=== PATIENT | female | born 1955 | race Caucasian/White ===

== ENCOUNTER → 2016-07-21 | Outpatient (CLI) | payer OTHER | LOC: BMCIMAGING 09:10 | PROVIDERS: ATTEND Internal Medicine | DX: Z12.31 Encounter for screening mammogram for malignant neoplasm of breast (principal) | CPT/HCPCS: G0202 ==

== ENCOUNTER → 2016-12-13 | Outpatient (CLI) | payer OTHER | LOC: BMCIMAGING 16:31 | PROVIDERS: ATTEND Physician Assistant | DX: M25.561 Pain in right knee (principal) ==

== ENCOUNTER → 2017-12-26 | Outpatient (CLI) | payer OTHER | LOC: BMCIMAGING 16:35 | PROVIDERS: ATTEND Emergency Medicine | DX: M25.531 Pain in right wrist (principal); M25.521 Pain in right elbow ==

== ENCOUNTER → 2018-02-12 | Outpatient (CLI) | payer OTHER | LOC: BMCIMAGING 12:46 | PROVIDERS: ATTEND Orthopaedic Surgery Hand Surgery | DX: S52.134D Nondisplaced fracture of neck of right radius, subsequent encounter for closed fracture with routine healing (principal) ==

== ENCOUNTER → 2018-05-24 | Outpatient (CLI) | payer OTHER | LOC: BMCIMAGING 12:54 | PROVIDERS: ATTEND Internal Medicine | DX: Z12.31 Encounter for screening mammogram for malignant neoplasm of breast (principal) ==